=== PATIENT | female | born 1975 | race Hispanic/Latino ===

== ENCOUNTER 2016-12-25 13:43 | Emergency (ER) | payer OTHER ==
[2016-12-25 14:50] VITALS: BP 103/66
[2016-12-25 15:20] LABS: Basophils % (Auto) 0.9 % (0.0-1.8); Eosinophils % (Auto) 1.3 % (0.0-4.3); Hematocrit 36.6 % (30.3-42.9); Hemoglobin 12.4 gm/dl (10.1-14.3); Mean Corpuscular HGB Conc 34 % (30-34); Mean Corpuscular Hemoglobin 27 pg (28-32); Mean Corpuscular Volume 81 fl (79-97); Platelet Count 279 K/mm3 (140-440); Red Blood Count 4.55 M/mm3 (3.65-5.03); White Blood Count 8.9 K/mm3 (4.5-11.0)
[2016-12-25 15:38] LABS: Anion Gap 20 mmol/L; BUN/Creatinine Ratio 22.85; Blood Urea Nitrogen 16 mg/dL (7-17); Calcium 9.1 mg/dL (8.4-10.2); Carbon Dioxide 25 mmol/L (22-30); Glucose 197 mg/dL (65-100); Potassium 4.6 mmol/L (3.6-5.0); Sodium 137 mmol/L (137-145)
[2016-12-25 15:51] LABS: Bilirubin,Urine NEG (Negative); Blood,Urine NEG (Negative); Ketones,Urine TR mg/dL (Negative); Leukocyte Esterase,Urine NEG (Negative); Mucus,Urine 3+ /HPF; Nitrite,Urine NEG (Negative); Urobilinogen,Urine < 2.0 mg/dL (<2.0)
--- NOTE | 2016-12-25 17:49 | Emergency Department Report ---
- General Chief Complaint: Skin/Abscess/Foreign Body Stated Complaint: BLISTER ON LEFT FOOT Time Seen by Provider: 12/25/16 17:30 Source: patient Mode of arrival: Ambulatory Limitations: No Limitations - History of Present Illness Initial Comments: Patient presents with diabetic ulcer on the bottom of her left foot. She admits to having this since August 2016. She admits to walking to work which flares and worsens the ulcer. She states that she has been going to [facility] getting antibiotics. She admits that she is unable to follow up with wound care. She is noncompliant with her treatment. She states she does not follow-up with endocrinology, she does not have a primary care physician, and she has never followed up with mailing clerk. She also denies pain at this time stating that she has diabetic neuropathy. -: Gradual Location: other Extremity Location: Left: Foot (left foot) Context: other (diabetic ulcer) Associated Symptoms: loss of feeling/numbness - Related Data Previous Rx's Medication Instructions Recorded Last Taken Type Sulfamethoxazole/Trimethoprim 1 each PO BID #14 tablet 12/25/16 Unknown Rx [Bactrim DS TAB] traMADol [Ultram 50 MG tab] 50 mg PO BID PRN #20 tablet 12/25/16 Unknown Rx Allergies Allergy/AdvReac Type Severity Reaction Status Date / Time iodine Allergy Anaphylaxis Verified 08/24/16 13:59 shellfish derived Allergy Anaphylaxis Verified 08/24/16 13:59 ED Review of Systems ROS: Stated complaint: BLISTER ON LEFT FOOT Other details as noted in HPI Constitutional: denies: chills, fever Respiratory: denies: cough, shortness of breath, wheezing Cardiovascular: denies: chest pain, palpitations Gastrointestinal: denies: abdominal pain, nausea, diarrhea Musculoskeletal: denies: back pain, joint swelling, arthralgia Skin: as per HPI Neurological: numbness (bilateral lower extremities). denies: headache, weakness, paresthesias ED Past Medical Hx - Past Medical History Hx Diabetes: Yes Additional medical history: arrythmia,diabetic neuropathy, - Surgical History Past Surgical History?: No - Social History Smoking Status: Former Smoker Substance Use Type: None - Medications Home Medications: Home Medications Medication Instructions Recorded Confirmed Last Taken Type Sulfamethoxazole/Trimethoprim 1 each PO BID #14 tablet 12/25/16 Unknown Rx [Bactrim DS TAB] traMADol [Ultram 50 MG tab] 50 mg PO BID PRN #20 tablet 12/25/16 Unknown Rx ED Physical Exam - General Limitations: No Limitations General appearance: alert, in no apparent distress - Head Head exam: Present: atraumatic, normocephalic - Eye Eye exam: Present: normal appearance, PERRL - Respiratory Respiratory exam: Present: normal lung sounds bilaterally. Absent: respiratory distress - Cardiovascular Cardiovascular Exam: Present: regular rate, normal rhythm. Absent: systolic murmur, diastolic murmur, rubs, gallop - GI/Abdominal GI/Abdominal exam: Present: soft, normal bowel sounds - Expanded Lower Extremity Exam Left Lower Leg exam: Present: normal inspection, full ROM. Absent: tenderness, swelling Ankle exam: Present: normal inspection, full ROM. Absent: tenderness, swelling Foot/Toe exam: Present: full ROM. Absent: tenderness, swelling Neuro vascular tendon exam: Present: no vascular compromise (dp, pt +2). Absent : abnormal cap refill 1 - diabetic ulcer, there is no obvious drainage present, no odor. There is a hard white callus around the wound and the center is red. - Neurological Exam Neurological exam: Present: alert, oriented X3, other (pt states she is unable to feel bottom of her foot, with moderate palpation she only feels pressure) - Psychiatric Psychiatric exam: Present: normal affect, normal mood - Skin Skin exam: Present: warm, dry, intact, normal color. Absent: rash ED Course Vital Signs 12/25/16 14:40 Temperature 98.6 F Pulse Rate 86 Respiratory 20 Rate Blood Pressure 103/66 O2 Sat by Pulse 99 Oximetry ED Medical Decision Making - Lab Data Result diagrams: 12/25/16 15:01 12/25/16 15:01 - Medical Decision Making Patient presents with a chronic diabetic ulcer on the bottom of her left foot. Pt white count is wnl, vital signs are wnl. I've spoken to Dr. Álvarez and he states to give her Bactrim twice a day 7 days and something for pain. He states she does not need to be admitted due to this being a chronic problem and there is no obvious drainage. - Differential Diagnosis diabetic foot ulcer, cellulitis Critical Care Time: No Critical care attestation.: If time is entered above; I have spent that time in minutes in the direct care of this critically ill patient, excluding procedure time. ED Disposition Clinical Impression: Chronic diabetic ulcer of left foot determined by examination, Diabetes, Diabetic neuropathy Disposition: DISCHARGED TO HOME OR SELFCARE Is pt being admited?: No Does the pt Need Aspirin: No Condition: Stable Instructions: Diabetes Mellitus Type 2 in Adults (ED) Additional Instructions: It is imperative that you f/u with a mailing clerk for your chronic diabetic foot ulcer. I also encourage you to f/u with a Primary care physician to manage your chronic illnesses. Return to the ED if pain increases, discoloration of foot, worsening symptoms. Prescriptions: Sulfamethoxazole/Trimethoprim [Bactrim DS TAB] 1 each PO BID #14 tablet traMADol [Ultram 50 MG tab] 50 mg PO BID PRN #20 tablet PRN Reason: Pain Referrals: PRIMARY CARE, [Primary Care Provider] - 3-5 Days [facility] [Outside] - 3-5 Days PAULA FALCON DPM [Staff Physician] - 3-5 Days JACK TRIVEDI DPM [Staff Physician] - 3-5 Days Forms: Work/School Release Form(ED) Time of Disposition: 18:02
== END 2016-12-25 18:05 | disposition home or self-care (01) ==
LOC: ED 13:43
DX: E11.621 Type 2 diabetes mellitus with foot ulcer (principal); L97.529 Non-pressure chronic ulcer of other part of left foot with unspecified severity; E11.40 Type 2 diabetes mellitus with diabetic neuropathy, unspecified; Z87.891 Personal history of nicotine dependence; Z91.041 Radiographic dye allergy status; Z91.013 Allergy to seafood; Z79.899 Other long term (current) drug therapy
CPT/HCPCS: 36415; 80048; 81001; 81025; 82962; 85025; 99283

== ENCOUNTER 2017-08-13 09:34 | Outpatient (CLI) | payer OTHER ==
--- NOTE | 2017-08-13 10:16 | XRay Report ---
LEFT KNEE, 3 views: History: Limited range of motion. The bony architecture is intact without evidence of fracture or dislocation. No significant soft tissue abnormality is seen. IMPRESSION: Normal left knee.
--- NOTE | 2017-08-13 10:17 | XRay Report ---
LUMBOSACRAL SPINE, 3 VIEWS: History: Limited range of motion Findings: The vertebral bodies, disk spaces and posterior elements are intact. No compression deformity or malalignment. The SI joints are symmetric and unremarkable. Impression: 1. No evidence for acute injury to the lumbar spine.
== END 2017-08-13 09:35 | disposition home or self-care (01) ==
LOC: XRAY 09:34
PROVIDERS: ATTEND Internal Medicine
DX: M25.662 Stiffness of left knee, not elsewhere classified (principal); M53.87 Other specified dorsopathies, lumbosacral region; E11.9 Type 2 diabetes mellitus without complications; R26.89 Other abnormalities of gait and mobility
CPT/HCPCS: 72100

== ENCOUNTER 2018-12-21 18:14 | Emergency (ER) | payer OTHER ==
[2018-12-21 19:33] LABS: Basophils # (Auto) 0.1 K/mm3 (0.0-0.1); Eosinophils # (Auto) 0.1 K/mm3 (0.0-0.4); Eosinophils % (Auto) 1.6 % (0.0-4.3); Hematocrit 38.1 % (30.3-42.9); Hemoglobin 13.3 gm/dl (10.1-14.3); Lymphocytes # (Auto) 1.1 K/mm3 (1.2-5.4); Mean Corpuscular HGB Conc 35 % (30-34); Mean Corpuscular Volume 80 fl (79-97); Monocytes # (Auto) 0.3 K/mm3 (0.0-0.8); Monocytes % (Auto) 5.4 % (0.0-7.3); Platelet Count 237 K/mm3 (140-440); Red Blood Count 4.76 M/mm3 (3.65-5.03); Red Cell Distribution Width 12.9 % (13.2-15.2)
[2018-12-21 19:53] LABS: BUN/Creatinine Ratio 21; Blood Urea Nitrogen 17 mg/dL (7-17); Calcium 9.4 mg/dL (8.4-10.2); Hemolysis Index 2
[2018-12-21 19:57] LABS: Bilirubin,Urine NEG (Negative); Blood,Urine NEG (Negative); Color,Urine Straw (Yellow); Urobilinogen,Urine < 2.0 mg/dL (<2.0)
--- NOTE | 2018-12-21 20:58 | Emergency Department Report ---
ED General Adult HPI - General Chief complaint: Skin/Abscess/Foreign Body Stated complaint: RASH/ABSCESS ON VAGINA Time Seen by Provider: 12/21/18 20:22 Source: patient Mode of arrival: Ambulatory Limitations: No Limitations - History of Present Illness Initial comments: Patient complained of left groin pain with lump after she shaved 3 days ago. She noticed a painful knot on left mons pubis yesterday. Patient denies fever/chills, nausea or vomiting. -: days(s) Location: left (mons pubis) Radiation: non-radiation Severity scale (0 -10): 5 Quality: aching, sharp Consistency: constant Improves with: none Worsens with: none Associated Symptoms: denies other symptoms Treatments Prior to Arrival: none - Related Data Previous Rx's Medication Instructions Recorded Last Taken Type Sulfamethoxazole/Trimethoprim 1 each PO BID #14 tablet 12/25/16 Unknown Rx [Bactrim DS TAB] traMADol [Ultram 50 MG tab] 50 mg PO BID PRN #20 tablet 12/25/16 Unknown Rx Clindamycin HCl 300 mg PO TID #30 capsule 12/21/18 Unknown Rx Ibuprofen [Motrin] 800 mg PO Q8HR PRN #15 tablet 12/21/18 Unknown Rx Mupirocin [Bactroban 2%] 1 applic TP TID #1 tube 12/21/18 Unknown Rx Allergies Allergy/AdvReac Type Severity Reaction Status Date / Time iodine Allergy Anaphylaxis Verified 08/24/16 13:59 shellfish derived Allergy Anaphylaxis Verified 08/24/16 13:59 ED Review of Systems ROS: Stated complaint: RASH/ABSCESS ON VAGINA Other details as noted in HPI Comment: All other systems reviewed and negative Constitutional: denies: chills, fever Eyes: denies: eye pain, eye discharge, vision change ENT: denies: ear pain, throat pain Respiratory: denies: cough, shortness of breath, wheezing Cardiovascular: denies: chest pain, palpitations Endocrine: no symptoms reported Gastrointestinal: denies: abdominal pain, nausea, diarrhea Genitourinary: other (Painful knot on the left mons pubis.). denies: urgency, dysuria, discharge Musculoskeletal: denies: back pain, joint swelling, arthralgia Skin: denies: rash, lesions Neurological: denies: headache, weakness, paresthesias Psychiatric: denies: anxiety, depression Hematological/Lymphatic: denies: easy bleeding, easy bruising ED Past Medical Hx - Past Medical History Hx Diabetes: Yes Additional medical history: arrythmia,diabetic neuropathy, - Surgical History Additional Surgical History: amputation left great toe. - Social History Smoking Status: Former Smoker Substance Use Type: Prescribed - Medications Home Medications: Home Medications Medication Instructions Recorded Confirmed Last Taken Type Sulfamethoxazole/Trimethoprim 1 each PO BID #14 tablet 12/25/16 Unknown Rx [Bactrim DS TAB] traMADol [Ultram 50 MG tab] 50 mg PO BID PRN #20 tablet 12/25/16 Unknown Rx Clindamycin HCl 300 mg PO TID #30 capsule 12/21/18 Unknown Rx Ibuprofen [Motrin] 800 mg PO Q8HR PRN #15 tablet 12/21/18 Unknown Rx Mupirocin [Bactroban 2%] 1 applic TP TID #1 tube 12/21/18 Unknown Rx ED Physical Exam - General Limitations: No Limitations General appearance: alert, in no apparent distress - Head Head exam: Present: atraumatic, normocephalic, normal inspection - Eye Eye exam: Present: normal appearance, PERRL, EOMI Pupils: Present: normal accommodation - ENT ENT exam: Present: normal exam, normal orophraynx, mucous membranes moist - Neck Neck exam: Present: normal inspection, full ROM. Absent: tenderness, meningismus - Respiratory Respiratory exam: Present: normal lung sounds bilaterally. Absent: respiratory distress, wheezes - Cardiovascular Cardiovascular Exam: Present: regular rate, normal rhythm, normal heart sounds. Absent: systolic murmur, diastolic murmur, rubs, gallop - GI/Abdominal GI/Abdominal exam: Present: soft, normal bowel sounds - External exam: Present: other (Left 2x3 cm tender induration with surrounding erythema on the left mons pubis.) Speculum exam: Present: other (Not done) Bi-manual exam: Present: other (Not done. Eric was Ms. Gary RN.) - Extremities Exam Extremities exam: Present: normal inspection, full ROM, normal capillary refill. Absent: tenderness - Back Exam Back exam: Present: normal inspection, full ROM. Absent: tenderness, CVA tenderness (R), CVA tenderness (L) - Neurological Exam Neurological exam: Present: alert, oriented X3, CN II-XII intact - Psychiatric Psychiatric exam: Present: normal affect, normal mood - Skin Skin exam: Present: warm, dry, intact, normal color. Absent: rash ED Course Vital Signs 12/21/18 12/21/18 12/21/18 18:48 18:57 19:38 Temperature 97.9 F 97.9 F Pulse Rate 90 90 Respiratory 18 18 16 Rate Blood Pressure 127/75 Blood Pressure 127/75 [Right] O2 Sat by Pulse 98 98 98 Oximetry 12/21/18 12/21/18 12/21/18 21:36 21:45 22:00 Temperature Pulse Rate Respiratory Rate Blood Pressure 108/64 94/47 Blood Pressure [Right] O2 Sat by Pulse 98 98 98 Oximetry 12/21/18 12/21/18 12/21/18 22:15 22:31 22:45 Temperature Pulse Rate Respiratory Rate Blood Pressure 94/47 94/47 94/47 Blood Pressure [Right] O2 Sat by Pulse 97 95 98 Oximetry 12/21/18 12/21/18 12/21/18 23:00 23:15 23:31 Temperature Pulse Rate Respiratory Rate Blood Pressure 113/64 113/64 113/64 Blood Pressure [Right] O2 Sat by Pulse 99 99 100 Oximetry 12/21/18 12/22/18 23:45 00:00 Temperature Pulse Rate Respiratory Rate Blood Pressure 113/64 154/81 Blood Pressure [Right] O2 Sat by Pulse 100 100 Oximetry - Reevaluation(s) Reevaluation #1: 12/21/18 23:32 Patient is feeling much better after receiving treatment in the ED. Patient said she does not need a refill prescription for her insulin and that she has plenty of insulin at home. Reevaluation #2: 12/22/18 00:16 Patient is ready to be discharged home. ED Medical Decision Making - Lab Data Result diagrams: 12/21/18 19:17 12/21/18 19:17 Lab Results 12/21/18 12/21/18 12/21/18 Range/Units 18:55 19:17 19:17 WBC 6.2 (4.5-11.0) K/mm3 RBC 4.76 (3.65-5.03) M/mm3 Hgb 13.3 (10.1-14.3) gm/dl Hct 38.1 (30.3-42.9) % MCV 80 (79-97) fl MCH 28 (28-32) pg MCHC 35 H (30-34) % RDW 12.9 L (13.2-15.2) % Plt Count 237 (140-440) K/mm3 Lymph % (Auto) 17.0 (13.4-35.0) % Morris % (Auto) 5.4 (0.0-7.3) % Eos % (Auto) 1.6 (0.0-4.3) % Baso % (Auto) 1.0 (0.0-1.8) % Lymph # 1.1 L (1.2-5.4) K/mm3 Morris # 0.3 (0.0-0.8) K/mm3 Eos # 0.1 (0.0-0.4) K/mm3 Baso # 0.1 (0.0-0.1) K/mm3 Seg Neutrophils % 75.0 H (40.0-70.0) % Seg Neutrophils # 4.7 (1.8-7.7) K/mm3 VBG pH (7.320-7.420) Sodium 134 L (137-145) mmol/L Potassium 4.5 (3.6-5.0) mmol/L Chloride 95.9 L (98-107) mmol/L Carbon Dioxide 25 (22-30) mmol/L Anion Gap 18 mmol/L BUN 17 (7-17) mg/dL Creatinine 0.8 (0.7-1.2) mg/dL Estimated GFR > 60 ml/min BUN/Creatinine Ratio 21 % Glucose 531 H* (65-100) mg/dL POC Glucose 408 H (70-105) Calcium 9.4 (8.4-10.2) mg/dL Urine Color (Yellow) Urine Turbidity (Clear) Urine pH (5.0-7.0) Ur Specific [place] (1.003-1.030) Urine Protein (Negative) mg/dL Urine Glucose (UA) (Negative) mg/dL Urine Ketones (Negative) mg/dL Urine Blood (Negative) Urine Nitrite (Negative) Urine Bilirubin (Negative) Urine Urobilinogen (<2.0) mg/dL Ur Leukocyte Esterase (Negative) Urine WBC (Auto) (0.0-6.0) /HPF Urine RBC (Auto) (0.0-6.0) /HPF U Epithel Cells (Auto) (0-13.0) /HPF 12/21/18 12/21/18 Range/Units 19:17 19:45 WBC (4.5-11.0) K/mm3 RBC (3.65-5.03) M/mm3 Hgb (10.1-14.3) gm/dl Hct (30.3-42.9) % MCV (79-97) fl MCH (28-32) pg MCHC (30-34) % RDW (13.2-15.2) % Plt Count (140-440) K/mm3 Lymph % (Auto) (13.4-35.0) % Morris % (Auto) (0.0-7.3) % Eos % (Auto) (0.0-4.3) % Baso % (Auto) (0.0-1.8) % Lymph # (1.2-5.4) K/mm3 Morris # (0.0-0.8) K/mm3 Eos # (0.0-0.4) K/mm3 Baso # (0.0-0.1) K/mm3 Seg Neutrophils % (40.0-70.0) % Seg Neutrophils # (1.8-7.7) K/mm3 VBG pH 7.325 (7.320-7.420) Sodium (137-145) mmol/L Potassium (3.6-5.0) mmol/L Chloride (98-107) mmol/L Carbon Dioxide (22-30) mmol/L Anion Gap mmol/L BUN (7-17) mg/dL Creatinine (0.7-1.2) mg/dL Estimated GFR ml/min BUN/Creatinine Ratio % Glucose (65-100) mg/dL POC Glucose (70-105) Calcium (8.4-10.2) mg/dL Urine Color Straw (Yellow) Urine Turbidity Clear (Clear) Urine pH 5.0 (5.0-7.0) Ur Specific [place] 1.028 (1.003-1.030) Urine Protein 100 mg/dl (Negative) mg/dL Urine Glucose (UA) >=500 (Negative) mg/dL Urine Ketones Neg (Negative) mg/dL Urine Blood Neg (Negative) Urine Nitrite Neg (Negative) Urine Bilirubin Neg (Negative) Urine Urobilinogen < 2.0 (<2.0) mg/dL Ur Leukocyte Esterase Neg (Negative) Urine WBC (Auto) 1.0 (0.0-6.0) /HPF Urine RBC (Auto) 1.0 (0.0-6.0) /HPF U Epithel Cells (Auto) 1.0 (0-13.0) /HPF - Medical Decision Making Hyperglycermia. Cellulitis of the left Groin. Critical care attestation.: If time is entered above; I have spent that time in minutes in the direct care of this critically ill patient, excluding procedure time. ED Disposition Clinical Impression: Hyperglycemia Cellulitis Qualifiers: Site of cellulitis: trunk Site of cellulitis of trunk: groin Qualified Code(s): L03.314 - Cellulitis of groin Disposition: TO HOME OR SELFCARE Is pt being admited?: No Does the pt Need Aspirin: No Condition: Stable Instructions: Cellulitis (ED), Diabetic Hyperglycemia (ED) Additional Instructions: Please follow up with your regular doctor on Sunday. Drink plenty of water. Take your medication regularly as prescribed. Return to the ED if your condition worsens. Prescriptions: Clindamycin HCl 300 mg PO TID #30 capsule Ibuprofen [Motrin] 800 mg PO Q8HR PRN #15 tablet PRN Reason: Pain , Severe (7-10) Mupirocin [Bactroban 2%] 1 applic TP TID #1 tube Referrals: LIZETTE FRIAS MD [Primary Care Provider] - 3-5 Days Time of Disposition: 00:16
[2018-12-21] MEDS ORDERED: NACL 0.9% 1000 ML 1,000 ML IV ONE ×2 (20:59)
[2018-12-21] MEDS ORDERED: CLEOCIN 900 MG/50 mL 900 MG/50 ML BAG IV ONE (21:00)
[2018-12-21] MEDS ORDERED: REGLAN IV ONE (21:00)
[2018-12-21] MEDS ORDERED: MORPHINE IV ONE (21:00)
[2018-12-21] MEDS ORDERED: HumuLIN R IV ONE (21:00)
[2018-12-21 21:57] LABS: Alanine Aminotransferase 12 units/L (7-56); Albumin 4.2 g/dL (3.9-5)
[2018-12-21 21:58] LABS: Bilirubin,Direct < 0.2 mg/dL (0-0.2)
[2018-12-22 00:01] VITALS: BP 154/81
== END 2018-12-22 00:25 | disposition home or self-care (01) ==
LOC: ED 18:14
DX: L03.314 Cellulitis of groin (principal); E11.65 Type 2 diabetes mellitus with hyperglycemia; E11.40 Type 2 diabetes mellitus with diabetic neuropathy, unspecified; Z87.891 Personal history of nicotine dependence; Z89.412 Acquired absence of left great toe; Z91.041 Radiographic dye allergy status; Z91.013 Allergy to seafood
CPT/HCPCS: 36415; 80048; 80076; 81001; 82805; 82962; 84703; 85025; 96365; 96375; 99284; J2270; J2765; J7030; J1815

== ENCOUNTER 2019-02-05 19:16 | Emergency (ER) | payer OTHER ==
--- NOTE | 2019-02-05 19:36 | Emergency Department Report ---
Chief Complaint: Urogenital-Female Stated Complaint: IRRITATION IN PRIVATE AREA Time Seen by Provider: 02/05/19 19:33 - HPI History of Present Illness: Pt presents with dysuria, vaginal itching, and a sore present on the vagina began 9 days ago used yeast infection medication OTC and it became worse has been scratching frequently (+) sexually active, no protection no hx of STD hx of IDDM - Exam Vital Signs: Vital Signs 02/05/19 19:22 Temperature 97.6 F Pulse Rate 86 Respiratory 16 Rate Blood Pressure 144/67 O2 Sat by Pulse 98 Oximetry MSE screening note: Focused history and physical exam performed. Due to findings the following was ordered: UA, urine preg, wet prep, G/C ED Disposition for MSE Condition: Stable
[2019-02-05 20:22] LABS: HCG Qualitative,Urine Negative (Negative)
[2019-02-05 20:24] LABS: Bacteria,Urine 1+ /HPF (Negative); Bilirubin,Urine NEG (Negative); Blood,Urine NEG (Negative); Color,Urine Yellow (Yellow); Urobilinogen,Urine < 2.0 mg/dL (<2.0)
[2019-02-05] MEDS ORDERED: DIFLUCAN PO ONE ×2 (23:19→23:45)
[2019-02-05] MEDS ORDERED: KEFLEX PO ONE (23:19)
[2019-02-05] MEDS ORDERED: ROCEPHIN IM ONE (23:21)
[2019-02-05] MEDS ORDERED: ZITHROMAX PO ONE (23:21)
[2019-02-05] MEDS ORDERED: XYLOCAINE 1% MPF 5 mL INFILTRATI ONE (23:21)
--- NOTE | 2019-02-05 23:23 | Emergency Department Report ---
ED Female HPI - General Chief complaint: Urogenital-Female Stated complaint: IRRITATION IN PRIVATE AREA Time Seen by Provider: 02/05/19 19:33 Source: patient Mode of arrival: Ambulatory Limitations: No Limitations - History of Present Illness Initial comments: Pt presents with dysuria, vaginal itching, and a sore present on the vagina began 9 days ago used yeast infection medication OTC and it became worse has been scratching frequently (+) sexually active, no protection no hx of STD , pt now advises dysuria, frequency, no hematuria, pt denies open sore or lesion no rash, now states yeast hx of same, requesting tx for std exposure there is no vaginal discharge no fever no chills no n/v pt is diabetic type II, advises adherent with medication regimen, there are no other symptoms no fever no chills no abd pain no n/v no polys last accucheck this am 204mg/dl Complaint: dysuria Onset/Timin -: days(s) Location: labia Severity: moderate Severity scale (0 -10): 4 Quality: other (itching ) Consistency: constant Improves with: none Worsens with: none Are you Now?: No Last Menstrual Period: 01/21/19 EDC: 10/28/19 Associated Symptoms: dysuria - Related Data Sexually active: Yes Previous Rx's Medication Instructions Recorded Last Taken Type Sulfamethoxazole/Trimethoprim 1 each PO BID #14 tablet 12/25/16 Unknown Rx [Bactrim DS TAB] traMADol [Ultram 50 MG tab] 50 mg PO BID PRN #20 tablet 12/25/16 Unknown Rx Clindamycin HCl 300 mg PO TID #30 capsule 12/21/18 Unknown Rx Ibuprofen [Motrin] 800 mg PO Q8HR PRN #15 tablet 12/21/18 Unknown Rx Mupirocin [Bactroban 2%] 1 applic TP TID #1 tube 12/21/18 Unknown Rx Insulin Glargine,Hum.rec.anlog 33 unit SQ TID #1 vial 02/05/19 Unknown Rx [Lantus] Lispro Insulin [Humalog] 70 unit SQ DAILY #1 vial 02/05/19 Unknown Rx Omeprazole 20 mg PO BID #60 tablet 02/05/19 Unknown Rx Sucralfate [Carafate] 1 gm PO ACHS 7 Days #28 tablet 02/05/19 Unknown Rx metroNIDAZOLE [Flagyl] 500 mg PO Q12HR 10 Days #20 tab 02/05/19 Unknown Rx Allergies Allergy/AdvReac Type Severity Reaction Status Date / Time iodine Allergy Anaphylaxis Verified 08/24/16 13:59 shellfish derived Allergy Anaphylaxis Verified 08/24/16 13:59 ED Review of Systems ROS: Stated complaint: IRRITATION IN PRIVATE AREA Other details as noted in HPI Constitutional: denies: chills, fever Eyes: denies: eye pain, eye discharge, vision change ENT: denies: ear pain, throat pain Respiratory: denies: cough, shortness of breath, wheezing Cardiovascular: denies: chest pain, palpitations Endocrine: no symptoms reported Gastrointestinal: denies: abdominal pain, nausea, diarrhea Genitourinary: urgency, dysuria, frequency. denies: hematuria, discharge, dyspareunia Musculoskeletal: denies: back pain, joint swelling, arthralgia Skin: denies: rash, lesions Neurological: denies: headache, weakness, paresthesias Psychiatric: denies: anxiety, depression Hematological/Lymphatic: denies: easy bleeding, easy bruising ED Past Medical Hx - Past Medical History Previous Medical History?: Yes Hx Diabetes: Yes Additional medical history: arrythmia, diabetic neuropathy, - Surgical History Past Surgical History?: Yes Additional Surgical History: amputation left great toe. - Social History Smoking Status: Never Smoker Substance Use Type: None - Medications Home Medications: Home Medications Medication Instructions Recorded Confirmed Last Taken Type Sulfamethoxazole/Trimethoprim 1 each PO BID #14 tablet 12/25/16 Unknown Rx [Bactrim DS TAB] traMADol [Ultram 50 MG tab] 50 mg PO BID PRN #20 tablet 12/25/16 Unknown Rx Clindamycin HCl 300 mg PO TID #30 capsule 12/21/18 Unknown Rx Ibuprofen [Motrin] 800 mg PO Q8HR PRN #15 tablet 12/21/18 Unknown Rx Mupirocin [Bactroban 2%] 1 applic TP TID #1 tube 12/21/18 Unknown Rx Insulin Glargine,Hum.rec.anlog 33 unit SQ TID #1 vial 02/05/19 Unknown Rx [Lantus] Lispro Insulin [Humalog] 70 unit SQ DAILY #1 vial 02/05/19 Unknown Rx Omeprazole 20 mg PO BID #60 02/05/19 Unknown Rx Sucralfate [Carafate] 1 gm PO ACHS 7 Days #28 tablet 02/05/19 Unknown Rx metroNIDAZOLE [Flagyl] 500 mg PO Q12HR 10 Days #20 tab 02/05/19 Unknown Rx ED Physical Exam - General Limitations: No Limitations General appearance: alert, in no apparent distress - Head Head exam: Present: atraumatic, normocephalic - Eye Eye exam: Present: normal appearance - ENT ENT exam: Present: mucous membranes moist - Neck Neck exam: Present: normal inspection - Respiratory Respiratory exam: Present: normal lung sounds bilaterally. Absent: respiratory distress - Cardiovascular Cardiovascular Exam: Present: regular rate, normal rhythm. Absent: systolic murmur, diastolic murmur, rubs, gallop - GI/Abdominal GI/Abdominal exam: Present: soft, normal bowel sounds - Rectal Rectal exam: Present: deferred - External exam: Present: other (exam deferred per patient ) - Extremities Exam Extremities exam: Present: normal inspection - Back Exam Back exam: Present: normal inspection, full ROM. Absent: tenderness, CVA tenderness (R), CVA tenderness (L), muscle spasm, paraspinal tenderness, verteb ral tenderness, rash noted - Neurological Exam Neurological exam: Present: alert, oriented X3 - Psychiatric Psychiatric exam: Present: normal affect, normal mood - Skin Skin exam: Present: warm, dry, intact, normal color. Absent: rash ED Course Vital Signs 02/05/19 19:22 Temperature 97.6 F Pulse Rate 86 Respiratory 16 Rate Blood Pressure 144/67 O2 Sat by Pulse 98 Oximetry ED Medical Decision Making - Lab Data Labs 02/05/19 19:49 Urine Color Yellow Urine Turbidity Slightly-cloudy Urine pH 5.0 Ur Specific [place] 1.030 Urine Protein 100 mg/dl Urine Glucose (UA) >=500 Urine Ketones Neg Urine Blood Neg Urine Nitrite Neg Ur Reducing Substances Not Reportable Urine Bilirubin Neg Urine Ictotest Not Reportable Urine Urobilinogen < 2.0 Ur Leukocyte Esterase Sm Urine WBC (Auto) 12.0 H Urine RBC (Auto) 11.0 U Epithel Cells (Auto) 10.0 Urine Bacteria (Auto) 1+ Urine HCG, Qual Negative - Medical Decision Making this is a STD Exposure, pt denies accucheck , no fever no chills no abd pain no n/v denies polys , dysuria frequency urgency, and candial rash, plan, tx for std exposure, diflucan, refill diabetes medication. pt will follow up with pcp in 2-3 days pt verbalized agreement and understanding of same. Critical care attestation.: If time is entered above; I have spent that time in minutes in the direct care of this critically ill patient, excluding procedure time. ED Disposition Clinical Impression: STD exposure Disposition: DC- TO HOME OR SELFCARE Is pt being admited?: No Does the pt Need Aspirin: No Condition: Stable Instructions: Sexually Transmitted Diseases (ED), Vaginitis (ED) Prescriptions: Sucralfate [Carafate] 1 gm PO ACHS 7 Days #28 tablet metroNIDAZOLE [Flagyl] 500 mg PO Q12HR 10 Days #20 tab Lispro Insulin [Humalog] 70 unit SQ DAILY #1 vial Insulin Glargine,Hum.rec.anlog [Lantus] 33 unit SQ TID #1 vial Omeprazole 20 mg PO BID #60 tablet. Referrals: [facility] [Outside] - 3-5 Days Forms: Work/School Release Form(ED) Time of Disposition: 23:41
[2019-02-06 00:43] VITALS: BP 131/78
== END 2019-02-06 00:44 | disposition home or self-care (01) ==
LOC: ED 19:16
DX: Z20.2 Contact with and (suspected) exposure to infections with a predominantly sexual mode of transmission (principal); E11.40 Type 2 diabetes mellitus with diabetic neuropathy, unspecified; Z79.4 Long term (current) use of insulin; Z91.013 Allergy to seafood; Z91.041 Radiographic dye allergy status; Z89.412 Acquired absence of left great toe
CPT/HCPCS: 81001; 81025; 96372; 99283; J0696